=== PATIENT | male | born 1960 | race Caucasian/White ===

== ENCOUNTER 2023-04-12 05:39 | Day surgery (SDC) | payer OTHER, SELFPAY ==
[2023-04-08 12:19] VITALS: BMI 28.0
--- NOTE | 2023-04-08 12:31 | PC.NURSE ---
Report to the Outpatient Waiting Room, entrance under the green pavilion located off [facility], at time 1000 on date 04/12/23. Planned Procedure Time: 1200. Time changes happen often and if your time is changed the preop area will call you the afternoon before. - You and your visitor will be asked to self-screen and do not enter if you have any COVID symptoms. - A mask is optional within the hospital at this time. Patients may have clear liquids (water, carbonated beverages, clear teas, apple juice) until 3 hours prior to surgery with a maximum of 20 ounces. - No food from midnight until time of surgery Take the following medications with a SIP of water the morning of surgery: CLONAZEPAM, TRAMADOL, INHALERS DO NOT STOP ANY OF YOUR OTHER PRESCRIPTION MEDICATIONS PRIOR TO SURGERY ?EXCEPT THE FOLLOWING Medications to discontinue per physician: VITAMINS Date to take last dose: 04/08/23 Please no make-up, nail wolof, hairspray, perfume, deodorant, or body powder the day of surgery. No jewelry (including any body piercings) or valuables the day of surgery, leave them at home. Please take a shower or bath the night before, or the morning of, surgery with an antibacterial soap. Wear comfortable, loose fitting clothing. - Jewelry must be removed prior to entering the operating room. Rings and piercings that are not removed may be cut off. - The hospital will not accept responsibility for valuables. - Please leave all valuables, including medications, at home the day of surgery. If you are going home after surgery, a licensed caterpillar driver must drive you home. - NO public transportation without another adult if you receive anesthesia. - We recommend that an adult stay with you for 24 hours following discharge. - We also recommend that you do not drive, make important decision, drink alcoholic beverages, or take any drugs that were not prescribed by your health care provider for at least 24 hours after your discharge time. Follow any additional instructions given to you from your surgeon. If you or anyone in your household have experienced Covid symptoms in the past week, please notify your surgeon or the nurse liaison at the phone number below for possible testing. Telephone instructions given to PT - MARIO ALBERTO RESENDIZ and asked if any additional questions and then verbalized understanding. Patient advised to call surgeon office or pre surgery nurse liaison [phone] if any additional questions.
[2023-04-12] VITALS (11 sets, daily range): BP systolic 119–161; BP diastolic 77–97; PULSE 66–81; RESP 16–20; TEMP 36.2–37.6; O2SAT 95–100; BMI 27.6
[2023-04-12] MEDS: ACETAMINOPHEN 500 MG TABLET 1000 MG PO (11:02)
[2023-04-12] MEDS: KETOROLAC 15 MG/ML VIAL (*BKC) IV PUSH (11:02)
[2023-04-12] MEDS: LACTATED RINGERS 1,000 ML 30 ML IV CONT ×2 (11:03→12:55)
[2023-04-12 11:13] LABS: Partial Thromboplastin Time 26.2 SECONDS (22.3-36.8)
--- NOTE | 2023-04-12 11:27 | WPDANESEPPF ---
Anes - Initial Pre Proc Eval Procedure: Operation Date: 04/12/23 12:00 Proposed Procedures p Rectal Examination Under Anesthesia, Transanal Hemorrhoidal Dearterialization - Aj Villasenor DO Date/Time: 04/12/23 11:27 Surgeon: Aj Villasenor DO Pre Op Diagnosis: bleeding internal hemorrhoids Patient Data Age: 62 Gender: M Height: 1.63 m Weight: 73.95 kg Allergies Allergy/AdvReac Type Severity Reaction Status Date / Time amoxicillin Allergy Unknown Diarrhea Verified 04/12/23 10:31 esomeprazole Allergy Unknown Unknown Verified 04/12/23 10:31 clindamycin Allergy Rash Verified 04/12/23 10:31 Penicillins Allergy Unknown Verified 04/12/23 10:31 sulfamethoxazole Allergy Rash Verified 04/12/23 10:31 [From Bactrim] trimethoprim [From Bactrim] Allergy Rash Verified 04/12/23 10:31 clavulanic acid AdvReac Diarrhea Verified 04/12/23 10:31 [From Augmentin] doxycycline AdvReac Dizziness Verified 04/12/23 10:31 teriparatide [From Forteo] AdvReac Unknown Verified 04/12/23 10:31 Home Medications Medication Instructions Recorded Confirmed Type albuterol sulfate 2.5 mg/0.5 mL 2.5 mg inhalation Q20M 12/21/20 04/12/23 History solution for nebulization albuterol sulfate 90 mcg/actuation 1 puff inhalation Q4H PRN 12/21/20 04/12/23 History aerosol inhaler (ProAir HFA) Bronchospasm cholecalciferol (vitamin D3) 125 125 mcg PO DAILY 12/21/20 04/12/23 History mcg (5,000 unit) tablet (Vitamin D3) clonazepam 1 mg tablet 1 mg PO DAILY 12/21/20 04/12/23 History cyclobenzaprine 10 mg tablet 10 mg PO TID 12/21/20 04/12/23 History dexlansoprazole 30 mg 30 mg PO DAILY 12/21/20 04/12/23 History capsule,biphase delayed release (Dexilant) famotidine 40 mg tablet 40 mg PO DAILY 12/21/20 04/12/23 History mometasone-formoterol HFA 100 2 puff inhalation Q12H 12/21/20 04/12/23 History mcg-5 mcg/actuation aerosol inhaler (Dulera) naproxen 500 mg tablet 500 mg PO BID 12/21/20 04/12/23 History tamsulosin 0.4 mg capsule 0.4 mg PO DAILY 12/21/20 04/12/23 History tramadol 50 mg tablet 50 mg PO Q6H PRN Pain 12/21/20 04/12/23 History hydrocortisone 2.5 % rectal cream 1 ea topical DAILY 12/25/22 04/12/23 History with applicator Laboratory Tests 04/12/23 10:57 APTT 26.2 SECONDS (22.3-36.8) Patient hx anesthesia problems: none Family hx anesthesia problems: none Results Review: All pre-operative results and documents have been reviewed as part of the pre-operative evaluation. [facility] Past Medical History Medical History Anxiety Asthma Barretts esophagus BPH (benign prostatic hyperplasia) Chronic ITP (idiopathic thrombocytopenia) GERD (gastroesophageal reflux disease) History of anal fissures IBS (irritable bowel syndrome) Kidney stone Mixed hyperlipidemia Osteoporosis Surgical History Surgical History History of ankle surgery right ankle - 1976 History of carpal tunnel release right -2014 History of testicular surgery 2003 Hx of hemorrhoids Underwent banding of internal hemorrhoids in 2004 and 2004 S/P anal fissurectomy Underwent lateral internal sphincterotomy for tx of anal fissures in 2003 at [facility] and in 2006 at [facility]. Family History Family History Mother Anal cancer Stomach cancer Sibling Malignant neoplasm of prostate Father Acute myocardial infarction Cerebrovascular accident Family history of CABG Father Cerebrovascular accident Mother Carcinoma of colon Sibling Carcinoma of colon Social History Social History Smoking status: Never smoker Alcohol intake: never Substance use: never Substance use type: does not use Living arrangements: alone Occupation/Education: other Additional occupation/edu
--- NOTE | 2023-04-12 11:50 | PM.IMHP ---
H&P: HPI History of Present Illness Date/Time: 04/12/23 11:50 Chief Complaint: Internal hemorrhoids Narrative: 62 yo man presents for THD procedure. He has hx of internal hemorrhoid bleeding. Symptoms have been better the last couple months but he still wants to proceed. Review of Systems Review of Systems: All systems reviewed & are unremarkable except as noted in HPI and below Constitutional: Constitutional: Denies chills, Denies fever(s), Denies headache(s) and Denies weight loss Eyes: Eyes: Denies change in vision ENT: Denies dizziness, Denies headache(s), Denies neck mass and Denies throat swelling Cardiovascular: Cardiovascular: Denies chest pain, Denies lightheadedness and Denies dyspnea Respiratory: Respiratory: Denies cough, Denies dyspnea and Denies wheezing Gastrointestinal: Gastrointestinal: Denies abdominal pain, Denies change in bowel habits, Denies nausea and Denies vomiting Genitourinary: Genitourinary: Denies hematuria and Denies dysuria Musculoskeletal: Musculoskeletal: Reports as per HPI Integumentary/Breasts: Skin/Breast: Reports as per HPI Neurologic: Denies dizziness and Denies headache(s) Allergic/Immunologic: Allergic/Immunologic: Denies throat swelling and Denies wheezing [facility] Past Medical History Medical History Anxiety Asthma Barretts esophagus BPH (benign prostatic hyperplasia) Chronic ITP (idiopathic thrombocytopenia) GERD (gastroesophageal reflux disease) History of anal fissures IBS (irritable bowel syndrome) Kidney stone Mixed hyperlipidemia Osteoporosis Surgical History Surgical History History of ankle surgery right ankle - 1976 History of carpal tunnel release right -2014 History of testicular surgery 2004 Hx of hemorrhoids Underwent banding of internal hemorrhoids in 2004 and 2004 S/P anal fissurectomy Underwent lateral internal sphincterotomy for tx of anal fissures in 2003 at [facility] and in 2006 at [facility]. Family History Family History Mother Anal cancer Stomach cancer Sibling Malignant neoplasm of prostate Father Acute myocardial infarction Cerebrovascular accident Family history of CABG Father Cerebrovascular accident Mother Carcinoma of colon Sibling Carcinoma of colon Social History Social History Smoking status: Never smoker Alcohol intake: never Substance use: never Substance use type: does not use Living arrangements: alone Occupation/Education: other Additional occupation/education comments: Disabled Spiritual care concerns: No Meds Home Medications and Allergies Home Medications Medication Instructions Recorded Confirmed Type albuterol sulfate 2.5 mg/0.5 mL 2.5 mg inhalation Q20M 12/21/20 04/12/23 History solution for nebulization albuterol sulfate 90 mcg/actuation 1 puff inhalation Q4H PRN 12/21/20 04/12/23 History aerosol inhaler (ProAir HFA) Bronchospasm cholecalciferol (vitamin D3) 125 125 mcg PO DAILY 12/21/20 04/12/23 History mcg (5,000 unit) tablet (Vitamin D3) clonazepam 1 mg tablet 1 mg PO DAILY 12/21/20 04/12/23 History cyclobenzaprine 10 mg tablet 10 mg PO TID 12/21/20 04/12/23 History dexlansoprazole 30 mg 30 mg PO DAILY 12/21/20 04/12/23 History capsule,biphase delayed release (Dexilant) famotidine 40 mg tablet 40 mg PO DAILY 12/21/20 04/12/23 History mometasone-formoterol HFA 100 2 puff inhalation Q12H 12/21/20 04/12/23 History mcg-5 mcg/actuation aerosol inhaler (Dulera) naproxen 500 mg tablet 500 mg PO BID 12/21/20 04/12/23 History tamsulosin 0.4 mg capsule 0.4 mg PO DAILY 12/21/20 04/12/23 History tramadol 50 mg tablet 50 mg PO Q6H PRN Pain 12/21/20 04/12/23 History hydrocortisone 2.5 % rectal cream 1 ea topical DAILY 12/25/22
--- NOTE | 2023-04-12 11:53 | WPDHPUPDATE1 ---
History and Physical Update Update Date/Time: 04/12/23 11:53 History and Physical has been reviewed, including an updated exam of the patient. There are NO changes in the patient's condition. Risks, benefits, and alternatives have been discussed and questions answered. Patient agrees to proceed with procedure.
[2023-04-12] MEDS: ceFAZolin 2 GM/D5W 50 ML 2 GM/50 ML BAG IVPB (12:05)
--- NOTE | 2023-04-12 12:51 | P.OP_ITS ---
Procedure Note - Detailed Date of Procedure 04/12/23 Pre-op Diagnosis bleeding internal hemorrhoids Post-op Diagnosis Same Procedure Performed 1. Multiple hemorrhoid ligation (Transanal hemorrhoid dearterialization procedure) Surgeon Aj Villasenor, DO Anesthesia General Indications This is a 62-year-old man who presented with intermittent bleeding internal hemorrhoids. He has been experiencing these for several years and has had history of rubber-band ligation of internal hemorrhoids in the past. Discu ssions were made with the patient about treatment options with continued rubber- band treatments versus other options. THD procedure was discussed with patient and decision was made to proceed with rectal exam under anesthesia with transanal hemorrhoid dearterialization procedure. Findings Rectal exam under anesthesia was performed. No significant rectal abnormalities were identified other than internal hemorrhoids. No external abnormalities were noted. The Doppler anoscope was utilized to identify the pulsatile vessels in the typical locations. Ligation was performed in all 6 locations. No specimens were obtained for pathology. Description of Procedure Procedure as well as risks, benefits, and alternatives were discussed with the patient. Written consent was obtained and placed in chart prior to procedure. Patient was brought back to surgical suite. He was placed supine [facility]. He was then intubated by the Anesthesia Department. He was then repositioned into prone shalonda-knife position and his buttocks were taped apart on each side. His perirectal area was prepped and draped in sterile fashion using Betadine prep. Time-out was done to confirm patient and procedure. Digital rectal exam was initially performed. A Hill-Daugherty anoscope was then inserted in the anorectal canal was carefully inspected. Prolapsing internal hemorrhoids were identified, but no other significant abnormalities were noted. The THD Doppler anoscope was then inserted. The pulsatile hemorrhoidal vessel was initially identified in the 1 o'clock location. A 2 0 Vicryl explja-ef-[id number] suture was placed at this location and the suture was tied down to ligate the vessel. This was then repeated in the 3, 5, 7, 9, and 11 o'clock positions. All Doppler signals were easily identified in each location. After completing this portion of the procedure, I then examined the anoderm and anal mucosa for any persistent prolapsing tissue. No other prolapsing tissue was identified. One final inspection was made around the anal rectal canal and no other abnormalities were noted. The patient was then awakened from anesthesia, extubated, and transferred to recovery. Estimated Blood Loss 5 Complications No immediate complications Condition Stable Disposition Same day [facility] Billing Surgery - Charge Forward: Surgery Billing
--- NOTE | 2023-04-12 15:06 | SUR.PHASEII ---
BLADDER SCAN SHOWED >345 ML URINE. PT SENSES DISTENDED BLADDER. UNABLE TO URINATE AFTER [address] FARRAR CALLED WHO SAID TO GIVE PATIENT ANOTHER HOUR TO URINATE AND TO CALL HIM IF NO URINE OUTPUT IN ONE HOUR.
--- NOTE | 2023-04-12 15:27 | SUR.PHASEII ---
PATIENT PUSHING FLUIDS WELL AND TAKING WALKS; ATTEMPTING TO URINATE NOW.
--- NOTE | 2023-04-12 16:32 | SUR.PHASEII ---
1605 PATIENT VOIDED. FEELS SOME RELIEF. REPEAT.BLADDER SCANNER SHOWED 67 ML.
== END 2023-04-12 16:25 | disposition home or self-care (01) ==
PROVIDERS: Visit Provider Surgery
PROC: (CPT 46948; principal; 2023-04-12 12:00)
DX: K64.8 Other hemorrhoids (principal); N40.0 Benign prostatic hyperplasia without lower urinary tract symptoms; D69.3 Immune thrombocytopenic purpura; E78.5 Hyperlipidemia, unspecified; M81.0 Age-related osteoporosis without current pathological fracture; J45.909 Unspecified asthma, uncomplicated; F41.9 Anxiety disorder, unspecified; Z79.51 Long term (current) use of inhaled steroids
CPT/HCPCS: 46948; 36415; 85730; A9270; J0330; J0690; J1100; J1885; J2250; J2405; J2704; J3010; J7120

== ENCOUNTER 2023-08-02 01:47 | Day surgery (SDC) | payer OTHER, SELFPAY ==
[2023-07-24 14:20] VITALS: BMI 27.5
--- NOTE | 2023-07-24 15:53 | PC.NURSE ---
Report to the Outpatient Waiting Room, entrance under the green pavilion located off [facility], at time _1130 on date __08/02/23 . Planned Procedure Time: _1330 . Time changes happen often and if your time is changed the preop area will call you the afternoon before. - You and your visitor will be asked to self-screen and do not enter if you have any COVID symptoms. - A mask is optional within the hospital at this time. Patients may have clear liquids (water, carbonated beverages, clear teas, apple juice) until 3 hours prior to surgery with a maximum of 20 ounces. - No food from midnight until time of surgery Take the following medications with a SIP of water the morning of surgery: __clonazepam, inhalers tramadol DO NOT STOP ANY OF YOUR OTHER PRESCRIPTION MEDICATIONS PRIOR TO SURGERY ?EXCEPT THE FOLLOWING Medications to discontinue per physician ____supplements/vitamins Date to take last dose___07/31/23 Please no make-up, nail italian, hairspray, perfume, deodorant, or body powder the day of surgery. No jewelry (including any body piercings) or valuables the day of surgery, leave them at home. Please take a shower or bath the night before, or the morning of, surgery with an antibacterial soap. Wear comfortable, loose fitting clothing. Children are encouraged to wear pajamas. - Jewelry must be removed prior to entering the operating room. Rings and piercings that are not removed may be cut off. - The hospital will not accept responsibility for valuables. - Please leave all valuables, including medications, at home the day of surgery. If you are going home after surgery, a licensed line driver must drive you home. - NO public transportation without another adult if you receive anesthesia. - We recommend that an adult stay with you for 24 hours following discharge. - We also recommend that you do not drive, make important decision, drink alcoholic beverages, or take any drugs that were not prescribed by your health care provider for at least 24 hours after your discharge time. Follow any additional instructions given to you from your surgeon. If you or anyone in your household have experienced Covid symptoms in the past week, please notify your surgeon or the nurse liaison at the phone number below for possible testing. Telephone instructions given to ___RICKY and asked if any additional questions and then verbalized understanding. Patient advised to call surgeon office or pre surgery nurse liaison [phone] if any additional questions.
--- NOTE | 2023-08-02 12:12 | WPDHPUPDATE1 ---
History and Physical Update Update Date/Time: 08/02/23 12:12 History and Physical has been reviewed, including an updated exam of the patient. There are NO changes in the patient's condition. Risks, benefits, and alternatives have been discussed and questions answered. Patient agrees to proceed with procedure.
--- NOTE | 2023-08-02 12:12 | PM.IMHP ---
H&P: HPI History of Present Illness Date/Time: 08/02/23 12:12 Chief Complaint: Rectal pain Narrative: 62 yo man presents for rectal EUA. He reports no changes since last seen in office. Review of Systems Review of Systems: All systems reviewed & are unremarkable except as noted in HPI and below Constitutional: Constitutional: Denies chills, Denies fever(s), Denies headache(s) and Denies weight loss Eyes: Eyes: Denies change in vision ENT: Denies dizziness, Denies headache(s), Denies neck mass and Denies throat swelling Cardiovascular: Cardiovascular: Denies chest pain, Denies lightheadedness and Denies dyspnea Respiratory: Respiratory: Denies cough, Denies dyspnea and Denies wheezing Gastrointestinal: Gastrointestinal: Denies abdominal pain, Denies change in bowel habits, Denies nausea and Denies vomiting Genitourinary: Genitourinary: Denies hematuria and Denies dysuria Musculoskeletal: Musculoskeletal: Reports as per HPI Integumentary/Breasts: Skin/Breast: Reports as per HPI Neurologic: Denies dizziness and Denies headache(s) Allergic/Immunologic: Allergic/Immunologic: Denies throat swelling and Denies wheezing [facility] Past Medical History Medical History Anxiety Asthma Barretts esophagus BPH (benign prostatic hyperplasia) Chronic ITP (idiopathic thrombocytopenia) GERD (gastroesophageal reflux disease) History of anal fissures IBS (irritable bowel syndrome) Kidney stone Mixed hyperlipidemia Osteoporosis Surgical History Surgical History History of ankle surgery right ankle - 1976 History of carpal tunnel release right -2013 History of rectal surgery 1. Multiple hemorrhoid ligation (Transanal hemorrhoid dearterialization procedure) in 04/12/23 [facility] History of testicular surgery 2003 Hx of hemorrhoids Underwent banding of internal hemorrhoids in 2004 and 2004 S/P anal fissurectomy Underwent lateral internal sphincterotomy for tx of anal fissures in 2003 at [facility] and in [address] [facility]. Family History Family History Mother Anal cancer Stomach cancer Sibling Malignant neoplasm of prostate Father Acute myocardial infarction Cerebrovascular accident Family history of CABG Father Cerebrovascular accident Mother Carcinoma of colon Sibling Carcinoma of colon Social History Social History Smoking status: Never smoker Alcohol intake: never Substance use: never Substance use type: does not use Living arrangements: with family Occupation/Education: other Additional occupation/education comments: Disabled Spiritual care concerns: No Meds Home Medications and Allergies Home Medications Medication Instructions Recorded Confirmed Type albuterol sulfate 2.5 mg/0.5 mL 2.5 mg inhalation Q20M 12/21/20 07/24/23 History solution for nebulization albuterol sulfate 90 mcg/actuation 1 puff inhalation Q4H PRN 12/21/20 07/24/23 History aerosol inhaler (ProAir HFA) Bronchospasm cholecalciferol (vitamin D3) 125 125 mcg PO DAILY 12/21/20 07/24/23 History mcg (5,000 unit) tablet (Vitamin D3) clonazepam 1 mg tablet 1 mg PO DAILY 12/21/20 07/24/23 History cyclobenzaprine 10 mg tablet 10 mg PO TID 12/21/20 07/24/23 History dexlansoprazole 30 mg 30 mg PO DAILY 12/21/20 07/24/23 History capsule,biphase delayed release (Dexilant) famotidine 40 mg tablet 40 mg PO DAILY 12/21/20 07/24/23 History mometasone-formoterol HFA 100 2 puff inhalation Q12H 12/21/20 07/24/23 History mcg-5 mcg/actuation aerosol inhaler (Dulera) naproxen 500 mg tablet 500 mg PO BID 12/21/20 07/24/23 History tamsulosin 0.4 mg capsule 0.4 mg PO DAILY 12/21/20 07/24/23 History tramadol 50 mg tablet 50 mg PO Q6H PRN Pain 12/21/20 07/24/23 History hydrocortisone 2
[2023-08-02] MEDS: KETOROLAC 15 MG/ML VIAL (*BKC) IV PUSH (12:15)
[2023-08-02] MEDS: ACETAMINOPHEN 500 MG TABLET 1000 MG PO (12:15)
--- NOTE | 2023-08-02 12:22 | WPDANESEPPF ---
Anes - Initial Pre Proc Eval Procedure: Operation Date: 08/02/23 13:30 Proposed Procedures p Rectal Examination Under Anesthesia, Possible Sphincterotomy - Aj Villasenor DO Date/Time: 08/02/23 12:22 Surgeon: jA Villasenor DO Pre Op Diagnosis: Rectal Pain Patient Data Age: 62 Gender: M Height: 1.65 m Weight: 75 kg Allergies Allergy/AdvReac Type Severity Reaction Status Date / Time amoxicillin Allergy Unknown Diarrhea Verified 07/24/23 14:31 esomeprazole Allergy Unknown Unknown Verified 07/24/23 14:31 clindamycin Allergy Rash Verified 07/24/23 14:31 Penicillins Allergy Unknown Verified 07/24/23 14:31 sulfamethoxazole Allergy Rash Verified 07/24/23 14:31 [From Bactrim] trimethoprim [From Bactrim] Allergy Rash Verified 07/24/23 14:31 clavulanic acid AdvReac Diarrhea Verified 07/24/23 14:31 [From Augmentin] doxycycline AdvReac Dizziness Verified 07/24/23 14:31 teriparatide [From Forteo] AdvReac Unknown Verified 07/24/23 14:31 Home Medications Medication Instructions Recorded Confirmed Type albuterol sulfate 2.5 mg/0.5 mL 2.5 mg inhalation Q20M 12/21/20 07/24/23 History solution for nebulization albuterol sulfate 90 mcg/actuation 1 puff inhalation Q4H PRN 12/21/20 07/24/23 History aerosol inhaler (ProAir HFA) Bronchospasm cholecalciferol (vitamin D3) 125 125 mcg PO DAILY 12/21/20 07/24/23 History mcg (5,000 unit) tablet (Vitamin D3) clonazepam 1 mg tablet 1 mg PO DAILY 12/21/20 07/24/23 History cyclobenzaprine 10 mg tablet 10 mg PO TID 12/21/20 07/24/23 History dexlansoprazole 30 mg 30 mg PO DAILY 12/21/20 07/24/23 History capsule,biphase delayed release (Dexilant) famotidine 40 mg tablet 40 mg PO DAILY 12/21/20 07/24/23 History mometasone-formoterol HFA 100 2 puff inhalation Q12H 12/21/20 07/24/23 History mcg-5 mcg/actuation aerosol inhaler (Dulera) naproxen 500 mg tablet 500 mg PO BID 12/21/20 07/24/23 History tamsulosin 0.4 mg capsule 0.4 mg PO DAILY 12/21/20 07/24/23 History tramadol 50 mg tablet 50 mg PO Q6H PRN Pain 12/21/20 07/24/23 History hydrocortisone 2.5 % rectal cream 1 ea topical DAILY 12/25/22 07/24/23 History with applicator hydrocortisone 2.5 % topical cream 1 applic RECTAL DAILY PRN pain #30 05/20/23 07/24/23 Rx with perineal applicator grams (Anusol-HC) Patient hx anesthesia problems: none Family hx anesthesia problems: none Results Review: All pre-operative results and documents have been reviewed as part of the pre-operative evaluation. [facility] Past Medical History Medical History Anxiety Asthma Barretts esophagus BPH (benign prostatic hyperplasia) Chronic ITP (idiopathic thrombocytopenia) GERD (gastroesophageal reflux disease) History of anal fissures IBS (irritable bowel syndrome) Kidney stone Mixed hyperlipidemia Osteoporosis Surgical History Surgical History History of ankle surgery right ankle - 1976 History of carpal tunnel release right -2014 History of rectal surgery 1. Multiple hemorrhoid ligation (Transanal hemorrhoid dearterialization procedure) in 04/12/23 [facility] History of testicular surgery 2003 Hx of hemorrhoids Underwent banding of internal hemorrhoids in 2004 and 2004 S/P anal fissurectomy Underwent lateral internal sphincterotomy for tx of anal fissures in 2003 at [facility] and in 2006 at [facility]. Family History Family History Mother Anal cancer Stomach cancer Sibling Malignant neoplasm of prostate Father Acute myocardial infarction Cerebrovascular accident Family history of CABG Father Cerebrovascular accident Mother Carcinoma of colon Sibling Carcinoma of colon Social History Social History Smoking status: Never smoker Alcohol intake:
[2023-08-02 12:29] VITALS: BP 137/96; PULSE 84; RESP 16; TEMP 37.1; O2SAT 97
[2023-08-02] MEDS: LACTATED RINGERS 1,000 ML 30 ML IV CONT (12:30)
[2023-08-02] MEDS: ceFAZolin 2 GM/D5W 50 ML 2 GM/50 ML BAG IVPB (13:07)
[2023-08-02] MEDS: BUPivacaine HCL 0.5% 10 ML AMP 30 ML INFILTRATE (13:15)
[2023-08-02 13:30] VITALS: BP 105/82; PULSE 85; RESP 16; O2SAT 97
--- NOTE | 2023-08-02 13:34 | W.PM.PROC2 ---
Procedure Note - Detailed Date of Procedure 08/02/23 Pre-op Diagnosis Rectal Pain Post-op Diagnosis Same (Rectal scarring) Procedure Performed Rectal exam under anesthesia Surgeon Aj Villasenor, DO Anesthesia MAC and Local (0.5% bupivacaine with epi) Indications This is a 62-year-old man who presents with rectal pain. He has had multiple rectal complaints in the past. He has had bleeding internal hemorrhoids, and most recently underwent THD procedure on 04/12/2023. His rectal bleeding resolved after this surgery, but he has been having rectal pain and burning ever since. He was placed steroid suppositories with no significant improvement then was also placed on a round of antibiotics. The patient is concerned that he might have a fissure, but did not respond to nifedipine ointment topically. Discussions were made with the patient about treatment options and decision was made to proceed with rectal exam under anesthesia with possible lateral internal sphincterotomy. Findings Rectal exam under anesthesia was performed. The patient had some rectal scarring about 3-4 cm from the anal verge from his prior rectal procedures. I did not identify an anal fissure or any other significant abnormalities. Due to no other significant findings, I did not proceed with sphincterotomy. No specimens were obtained for pathology. Description of Procedure Procedure as well as risks, benefits, and alternatives were discussed with the patient. Written consent was obtained and placed in chart prior to procedure. Patient was brought back to surgical suite. He was placed supine on the hospital operating table. Time-out was done to confirm patient and procedure. IV sedation was then administered by the anesthesia department. He was repositioned into dorsal lithotomy position. His perirectal area was prepped and draped in sterile fashion using Betadine prep. Digital rectal exam was performed. I then inserted a medium Hill-Daugherty anoscope in carefully inspected the entire anal rectal canal. There did not appear to be any evidence of fissure. I did identify some scarring from previous rectal procedures but there did not appear to be any stenosis. I then removed the Hill-Daugherty anoscope and inserted a Fansler anoscope and inspected the anal rectal canal further. No other significant abnormalities were noted. The anoscope was then removed. 0.5% bupivacaine with epinephrine was infiltrated locally around the perirectal area. The patient was then awakened from anesthesia and transferred to recovery. Estimated Blood Loss 0 Complications No immediate complications Condition Stable Disposition Same day [facility] Billing Surgery - Charge Forward: Surgery Billing
[2023-08-02 14:00] VITALS: BP 125/84; PULSE 74
== END 2023-08-02 14:28 | disposition home health service (06) ==
PROVIDERS: Visit Provider Surgery
PROC: (CPT 45990; principal; 2023-08-02 13:30)
DX: K62.89 Other specified diseases of anus and rectum (principal); J45.909 Unspecified asthma, uncomplicated; E78.2 Mixed hyperlipidemia; N40.0 Benign prostatic hyperplasia without lower urinary tract symptoms; F41.9 Anxiety disorder, unspecified; M81.0 Age-related osteoporosis without current pathological fracture; D69.3 Immune thrombocytopenic purpura; Z79.51 Long term (current) use of inhaled steroids
CPT/HCPCS: 45990; A9270; J0690; J1885; J2704; J3010; J7120

== ENCOUNTER 2023-08-15 11:40 | Outpatient (CLI) | payer OTHER, SELFPAY ==
--- NOTE | ~2023-08-15 | DEXA_ITS ---
Bone Density Report Name: MARIO ALBERTO RESENDIZ Age: 62 Sex: Male Ethnicity: White Date of : 1960 Indication: height loss; cancer; asthma or emphysema; Referring Provider: HETAL, REBA Schmidt Study: Bone densitometry was performed. Exam Date: August 15, 2023 Accession number: [id number] Bone Density: Region BMD T-score Z-score Classification AP Spine(L1-L4) 0.764 -3.0 -2.3 Osteoporosis Femoral Neck (Left) 0.494 -3.2 -2.2 Osteoporosis Total Hip (Left) 0.608 -2.8 -2.3 Osteoporosis Femoral Neck (Right) 0.489 -3.2 -2.3 Osteoporosis Total Hip (Right) 0.599 -2.9 -2.4 Osteoporosis Femoral Neck Mean 0.491 -3.2 -2.3 Osteoporosis Total Hip Mean 0.604 -2.8 -2.4 Osteoporosis World Health Organization criteria for BMD impression classify patients as: Normal (T-score at or above -1.0), Osteopenia (T-score between -1.0 and -2.5), or Osteoporosis (T-score at or below -2.5). 10-year Fracture Risk: FRAX not reported because: Some T-score for Spine Total or Hip Total or Femoral Neck at or below -2.5 Treated for osteoporosis Clinical Information Provided by Patient: Is being treated for osteoporosis Has used the following medications: Forteo (i.e. parathyroid hormone), Vitamin D Has the following medical conditions: Asthma or Emphysema, Cancer Patient maximum height was 65 No regular weight bearing exercise Drinks caffeinated beverages Impression: The patient has osteoporosis, based on the Left Femoral Neck T-score. Discussion: It is important to ask patients whether they are taking their medications and to encourage continued and appropriate compliance with their osteoporosis therapies to reduce fracture risk. It is also important to review their risk factors and encourage appropriate calcium and vitamin D intakes, exercise, fall prevention and other lifestyle measures. Follow-Up: Consider repeating this study in 2 years to reassess this patient's status, or sooner if there is some new clinical indication. Reported by: Dr. Balbir Rogers on 08/15/2023 12:25:00 PM. Reviewed, dictated and finalized at location A. [facility]
== END 2023-08-15 11:41 | disposition home or self-care (01) ==
PROVIDERS: Visit Provider Nurse Practitioner Family
DX: M81.0 Age-related osteoporosis without current pathological fracture (principal)
CPT/HCPCS: 77080

== ENCOUNTER 2023-09-05 08:30 | Outpatient (CLI) | payer OTHER, SELFPAY ==
--- NOTE | ~2023-09-05 | MR_ITS ---
EXAMINATION: MR pelvis wo/w con DATE: 09/05/2023 09:40 INDICATION: Other specified diseases of anus and rectum. Anal pain. TECHNIQUE: Magnetic resonance imaging (MRI) of the pelvis was performed without and with 14 mL MultiH ance intravenous contrast. COMPARISON: None. FINDINGS: The prostate is mildly enlarged. There are no dilated loops of bowel. There is a left inguinal hernia containing fat. There are no pathologically enlarged lymph nodes. There is no free intraperitoneal f luid. There is a 15 mm lesion of increased T2-weighted signal intensity in the intertrochanteric charles on of proximal left femur. IMPRESSION: 1. Normal anus and rectum. No etiology for the patient's symptoms. 2. Left inguinal hernia containing fat. 3. 15 mm lesion of increased T2-weighted signal intensity in the intertrochanteric region of proximal left femur, probably benign. Left hip radiographs are recommended. Reviewed, dictated and finalized at location A. IMPRESSION: 1. Normal anus and rectum. No etiology for the patient's symptoms. 2. Left inguinal hernia containing fat. 3. 15 mm lesion of increased T2-weighted signal intensity in the intertrochante harsh region of proximal left femur, probably benign. Left hip radiographs are re commended.
== END 2023-09-05 08:31 | disposition home or self-care (01) ==
PROVIDERS: Visit Provider Surgery
DX: K62.89 Other specified diseases of anus and rectum (principal); K40.90 Unilateral inguinal hernia, without obstruction or gangrene, not specified as recurrent; M89.9 Disorder of bone, unspecified
CPT/HCPCS: 72197; A9577